=== PATIENT | male | born 1955 | race African-American/Black ===

== ENCOUNTER → 2016-05-18 | Outpatient (CLI) | payer BC ==
--- NOTE | 2016-05-18 11:39 | RAD ---
Indication horseshoe kidney. Renal cyst. Grayscale imaging targeted to the kidneys was performed. No prior imaging of the kidneys is available. The right kidney measures approximately 9.4 x 4.9 cm. Within the right kidney there is a hypoechoic mass, compatible with a cyst, measuring 3.6 cm in greatest dimension. The urinary bladder appears grossly normal. The left component to the horseshoe kidney is relatively small. The left kidney measures approximately 6.6 x 2 cm. IMPRESSION: Horseshoe kidney. Right renal cyst. The left kidney component to the horseshoe is somewhat small
== END | disposition home or self-care (01) ==
LOC: US 11:03
PROVIDERS: ATTEND Internal Medicine Nephrology
DX: N28.1 Cyst of kidney, acquired (principal)
CPT/HCPCS: 76770

== ENCOUNTER 2020-11-19 06:12 | Day surgery (SDC) | payer BC ==
[~2020-11-19] VITALS: Ht 177.8 cm; Wt 89.0 kg
[~2020-11-19 06:12] MED LIST: HYDROmorphone 2 MG/ML VIAL IVP PRN; IV RINGERS,LACTATED 1000ML 1,000 ML IV SCH; MORPHINE SULFATE 2 MG/ML INJ. IVP PRN; PROCHLORPERAZINE 10 MG/2 ML VIAL. IVP PRN; fentaNYL PF VIAL 100 MCG/2 ML VIAL IVP PRN
[2020-11-19] MEDS ORDERED: LISI20TA18 PO (06:43)
[2020-11-19] MEDS ORDERED: AMLO-186 PO (06:43)
[2020-11-19] MEDS ORDERED: WARF-31 PO (06:43)
[2020-11-19] MEDS ORDERED: CARV25TA2 PO (06:43)
[2020-11-19] MEDS ORDERED: ATOR40TA59 PO (06:43)
[2020-11-19] MEDS ORDERED: DOXA2TAB2 PO (06:43)
[2020-11-19] MEDS ORDERED: METF500T16 PO (06:43)
[2020-11-19] MEDS ORDERED: HYDR12.575 PO (06:43)
[2020-11-19 06:47] VITALS: BP 131/77
[2020-11-19] MEDS: INSULIN LISPRO 100 UNIT/ML 3ML VIAL for OP,RR ONLY. SQ PRN ×2 (06:54→08:33)
[2020-11-19] MEDS ORDERED: DEXAMETHASONE SOD PHOS 4 MG/ML VIAL ONE (06:57)
[2020-11-19] MEDS ORDERED: PROPOFOL 10 MG/ML (20ML) VIAL. IV ONE (06:57)
[2020-11-19] MEDS ORDERED: ONDANSETRON PF 4 MG/2 ML VIAL. ONE (06:57)
[2020-11-19] MEDS ORDERED: LIDOCAINE 2% PF 5 ML VIAL. ONE (06:57)
[2020-11-19] MEDS ORDERED: fentaNYL PF VIAL 100 MCG/2 ML VIAL ONE (06:57)
[2020-11-19] MEDS ORDERED: BUPIVACAINE MPF 0.25% 30 ML VIAL. ONE (07:05)
[2020-11-19 07:15] LABS: PROTHROMBIN TIME PATIENT 15.7 SEC (11.7-14.0)
[2020-11-19] MEDS ORDERED: HYDR-2761 PO (07:33)
--- NOTE | 2020-11-19 07:36 | DISCH ---
DISCHARGE INSTRUCTIONS Condition on Discharge Condition on Discharge: Stable Activity After Discharge Activity Instructions for Disc: Other, see below (Avoid hard grasping for about the next 3 weeks) Lifting Instructions after Dis: No heavy lifting Weight Bearing Status after Di: Non weight bearing Diet after Discharge Diet after Discharge: Diabetic No Calorie Level Wound Incision Care Wound/Incision Care: Ice to area for comfort, Keep wound elevated, Do not change dressing (Keep dressing in place for protection and less wet or soiled) Contacting the [facility]ell[facility] after DC Call your doctor for: Concerns you may have Follow-Up Follow up with: Mr. Naranjo 10 days ODALYS MAHER MD Nov 19, 2020 07:36
[2020-11-19] MEDS ORDERED: PHENYLEPHRINE in 0.9% NACL PF 1 MG/10 ML SYRINGE. IV ONE (07:38)
[2020-11-19] MEDS ORDERED: ePHEDrine PF IN SALINE 50 MG/10 ML SYRINGE. IV ONE (07:52)
[2020-11-19] MEDS ORDERED: SEVOFLURANE 31 TO 60 MINUTES. IH ONE (08:03)
--- NOTE | 2020-11-19 08:17 | PDOC4 ---
Operative Note Operative Note Date of surgery: 11/19/2020 Preoperative diagnosis: Right carpal tunnel syndrome and trigger thumb Postoperative diagnosis: Same with moderate to severe median nerve compression Operative procedure: Right carpal tunnel and trigger thumb releases Surgeon: Ramana Assist: Len fink Anesthesia: General Estimated blood loss: 2 cc Complications: None Operative indications: He states that he had failed nonoperative management of the trigger finger and numbness in the hand with documented EMG findings of carpal tunnel syndrome and we covered risks benefits postoperative course of surgical treatment with the rationale for A1 tiff release and carpal tunnel release the possibility of nerve or blood vessel damage infection medical or other anesthetic complications continued pain scarring among others all his questions were answered and he wishes to proceed with surgical evaluation and treatment Operative text: Patient was identified procedure verified patient placed in supine position on the operating table. After adequate amounts of general anesthesia were administered the right upper extremity was prepped and draped in standard sterile fashion with an upper arm tourniquet. After timeout was performed patient procedure identified and verified the right upper extremity was exsanguinated by Esmarch bandage tourniquet inflated to 250 mmHg and an incision was made transversely along the distal palmar crease of the right thumb and dissection carried out down to the flexor tendon sheath protecting the neurovascular bundles on either side a midline incision was made in the flexor tendon sheath and tenotomy scissors were used to divide the A1 tiff proximally and distally. Triggering was eliminated there was noted to be a anton of fluid from the tendon sheath indicating irritation flexor tendon structures were noted to be intact. A longitudinal incision was made just distal to the distal palmar crease blunt dissection carried out down to the transverse carpal ligament which was divided longitudinally under direct vision with a scalpel and then with tenotomy scissors verifying complete release of the transverse carpal ligament both proximally and distally both visually and palpably. Median nerve was noted to have moderate to severe compression and no synovitis or compromise of the flexor tendons in the carpal tunnel. Thorough irrigation carried out with normal saline solution and closure accomplished with nylon suture in a vertical mattress fashion. Sterile dressings were then applied fingers were noted be warm pink following deflation of the tourniquet. Patient was returned to recovery room in stable condition having tolerated procedure well. Len fink was present for the procedure assisted in patient positioning prepping draping retraction closure and dressings ODALYS MAHER MD Nov 19, 2020 08:17
[2020-11-19] MEDS ORDERED: HYDROcodone/APAP 5/325MG 1 TAB TABLET PO ONE (08:30)
[2020-11-19 08:51] VITALS: BP 125/82
[2020-11-19] MEDS ORDERED: INSULIN LISPRO 100 UNIT/ML 3ML VIAL for OP,RR ONLY. SQ ONE ×2 (09:00)
== END 2020-11-19 09:09 | disposition home or self-care (01) ==
LOC: SURG 06:12
PROVIDERS: ATTEND Orthopaedic Surgery
DX: G56.01 Carpal tunnel syndrome, right upper limb (principal); M65.311 Trigger thumb, right thumb; I10 Essential (primary) hypertension; I48.91 Unspecified atrial fibrillation; E78.00 Pure hypercholesterolemia, unspecified; E11.9 Type 2 diabetes mellitus without complications; Z79.01 Long term (current) use of anticoagulants; Z79.84 Long term (current) use of oral hypoglycemic drugs; Z79.899 Other long term (current) drug therapy; Z98.890 Other specified postprocedural states; Z88.1 Allergy status to other antibiotic agents
CPT/HCPCS: 26055; 36415; 64721; 82962; 85610; A4930; A6402; J1815; J2370; J2405; J2704; J3010; J3490; A4657; A6452; J0690; J1100